=== PATIENT | female | born 1970 | race Caucasian/White ===

== ENCOUNTER 2024-04-27 15:18 | Outpatient (CLI) | payer OTHER, SELFPAY ==
--- NOTE | ~2024-04-27 | MM_ITS ---
EXAMINATION: MM screening hipolito BI w christie HISTORY: Screening TECHNIQUE: Craniocaudal and mediolateral oblique 3-D tomosynthesis images were obtained and synthetic 2-D images were generated. CAD analysis was submitted and interpreted. COMPARISON: No prior mammogram is available for comparison at this institution. BREAST PARENCHYMAL COMPOSITION: Not dense: There are scattered areas of fibroglandular density. FINDINGS: There is no evidence of suspicious mass, calcification, or architectural distortion to sugg est malignancy in either breast. There has been no suspicious interval change. IMPRESSION: 1. No mammographic evidence of malignancy. 2. Recommend routine screening mammography in one year. BI-RADS Category 1: Negative Reviewed, dictated and finalized at location B.
--- OUTSIDE RECORDS SUMMARY | 2024-04-27 15:24 | XMS_ITS | Clinical Summary ---
Author Organization [facility] [place] [facility] Address [address] [place] [address] Care Team Providers Care Manager Camp Name Role Phone Salas Hassan MD Primary Care Provider [phone] Allergies Active Allergy Reactions Criticality Noted Date Comments Latex Rash Medium 04/11/2020 Medications celecoxib (CeleBREX) 100 mg capsule 01/15/[address] (PROTONIX) 40 mg EC tablet 01/15/2023 Active montelukast (SINGULAIR) 10 mg tablet Take 1 tablet (10 mg total) by mouth daily 10/30/2023 Active Active Problems No known active problems Encounters Date Type Department Care Team Description 03/20/2024 Telephone [facility] [place] [facility] [address] [place] [phone] Jessica Naqvi 03/20/[address] [phone] Jessica Naqvi from Last 3 Months Social History Tobacco Use Types Packs/Day Years Used Date Smoking Tobacco: Every Day Cigarettes Tobacco Cessation:Ready to Q uit: No; Counseling Given: Yes Comments Unknown Sex and Gender Information Value Date Recorded Sex Assigned at Not on file Legal Sex Female 3:21 AM HOSTED SERVICES ANALYST Gender Identity Not on file Sexual Orientation Not on file Obstetrics History Last Filed Vital Signs Vital Sign Reading Time Taken Comments Blood Pressure 132/90 12/24/2023 3:39 PM HOSTED SERVICES ANALYST Pulse 98 12/24/2023 3:39 PM HOSTED SERVICES ANALYST Temperature 36.7 C (98.1 F) 12/24/2023 3:39 PM HOSTED SERVICES ANALYST Respiratory Rate 17 12/24/2023 3:39 PM HOSTED SERVICES ANALYST Oxygen Saturation 99% 12/24/2023 3:39 PM HOSTED SERVICES ANALYST Inhaled Oxygen Concentration - - Weight 78.9 kg (174 lb) 12/24/2023 3:39 PM HOSTED SERVICES ANALYST Height 157.5 cm (5' 2 ) 12/24/2023 3:39 PM HOSTED SERVICES ANALYST Body Mass Index 31.83 12/24/2023 3:39 PM HOSTED SERVICES ANALYST Plan of Treatment Health Maintenance Due Date Last Done Comments Breast Cancer Screening-Mammogram 1968 Cervical Cancer Screening 1968 Colon Cancer Screening-Colonoscopy 1968 Depression Screening 1968 Hepatitis C Screening 1968 Hepatitis B Screening 1986 Regular Well Visit/Exam 18-64 1986 Pneumococcal vaccine <65 (1 of 2 - PCV) 09/16/1987 Zoster Vaccine (1 of 2) 2018 DTaP/Tdap/Td Vaccine (2 - Td or Tdap) 07/17/202111/2011 Influenza Vaccine (#1) 2023 Insurance [facility] Care Teams Manager Camp Relationship Specialty Start Date End Date Salas Hassan MD [facility] [place] [address] PCP - General Family Medicine 01/14/23
--- OUTSIDE RECORDS SUMMARY | 2024-04-27 15:24 | XMS_ITS | Clinical Summary ---
Author Organization [facility] [place] Address [address] [place] [address] Care Team Providers Care Irrigation Supervisor Name Role Phone Chris Santoyo MD Primary Care Provider [phone] Source Comments [facility],non-owned Affiliates and Associated Physician Practices is amultiple site organization consisting of ambulatory clinics and hospital sitesin [place], [place], [place] and [place]. This disclosure is being madepursuant to the Care Everywhere program and may not contain all information available regarding this patient. Last updated 17.[facility] [place] Allergies Active Allergy Reactions Criticality Noted Date Comments Latex Rash Medium 04/11/2020 Medications * Be aware that medications may not be up to date on this document. Alwaysverify current medications with the patient. Medication Sig Dispensed Refills Start Date End Date Status RaNITidine HCl (ZANTAC PO) Active Linaclotide (LINZESS PO) Active fluticasone propionate (FLONASE) 50 MCG/ACT nasal sprayIndications:Al lergic Rhinitis [place] 2 sprays into each nostril once daily Reasons: Allergic Rhinitis 1 bottles 05/20/2018 Active Additional Information Patient not taking.Reported on 01/18/2020 lansoprazole (PREVACID) 15 MG capsule Take 15 mg by mouth daily before breakfast Active Fexofenadine HCl (MARCIN PO) Active Active Problems Problem Noted Date Diagnosed Date Flank pain 02/07/2009 Flu 11/26/2008 Palpitations 09/17/2008 Immunizations Name Administration Dates Next Due TDAP (7yrs+) 07/18/2011 Social History Tobacco Use Types Packs/Day Years Used Date Smoking Tobacco: Every Day Cigarettes 1.5 20 Smokeless Tobacco: Never Alcohol Use Standard Drinks/Week Comments No 0 (1 standard drink = 0.6 oz pur e alcohol) rare Sex and Gender Information Value Date Recorded Sex Assigned at Not on file Gender Identity Not on file Sexual Orientation Not on file Last Filed Vital Signs Vital Sign Reading Time Taken Comments Blood Pressure 112/70 10/02/2020 5:39 PM CDT Pulse 75 10/02/2020 5:39 PM CDT Temperature 36.8 C (98.3 F) 10/02/2020 5:39 PM CDT Respiratory Rate 17 10/02/2020 5:39 PM CDT Oxygen Saturation 96% 10/02/2020 5:39 PM CDT Inhaled Oxygen Concentration - - Weight 70.3 kg (155 lb) 10/02/2020 5:39 PM CDT Height 157.5 cm (5' 2 ) 10/02/2020 5:39 PM CDT Body Mass Index 28.35 10/02/2020 5:39 PM CDT Plan of Treatment Health Maintenance Due Date Last Done Comments COLOGUARD (AGES 45-75) - COLON CA SCREENING 1968 COLON MONITORING 1968 COLONOSCOPY - COLON CA SCREENING 1968 CT COLONOGRAPHY - COLON CA SCREENING 1968 Colorectal Cancer Screening 1968 FIT - COLON CA SCREENING 1968 FLEX SIG - COLON CA SCREENING 1968 LIPID TESTING 1968 MAMMOGRAM 1968 PAP SMEAR 1968 HIV SCREENING 09/16/1983 HEPATITIS C SCREENING 09/11/1986 HEPATITIS B VACCINE (1 of 3 - 19+ 3-dose series) 09/16/1987 PNEUMOCOCCAL VACCINE 50+ (1 of 2 - PCV) 09/16/1987 PNEUMOCOCCAL VACCINE (1 of 2 - PCV) 09/16/1987 ZOSTER VACCINE (1 of 2) 2018 SCREENING FOR DIABETES 01/18/2020 0, 11/27/2008, 11/27/2008, Additional history exists DTAP/TDAP/TD VACCINES (2 - Td or Tdap) 07/17/2021 07/18/2011 COVID-19 VACCINE (2 - season) 2023 04/17/2020 INFLUENZA VACCINE (#1) 2023 DEPRESSION SCREENING 02/08/2024 HIB VACCINE Aged Out No longer eligi ble based on patient's age to complete this topic HPV VACCINE Aged Out No longer eligi ble based on patient's age to complete this topic MENINGOCOCCAL (Group B) VACCINE SHARED DECISION-MAKING Aged Out No longer eligible based on patient's age to complete this topic MENINGOCOCCAL GROUPS A/C/Y/W VACCINE Aged Out No longer eligible based on patient's age to complete this topic Procedures Procedure Name Priority Date/Time Associated Diagnosis Comments COMPREHENSIVE METABOLIC PANEL STAT 02/07/2009 6:32 PM HOUSE MOVING SUPERVISOR from Last 3 Months or Most Recently Relevant to Health Maintenance Results * (ABNORMAL) COMPREHENSIVE METABOLIC PANEL (02/07/2009 6:32 PM HOUSE MOVING SUPERVISOR) BUN 10 7.0 - 17.0 mg/dl [facility] Sodium 138 137 - 145 mmol/L [facility] Potassium 4.4 3.6 - 5.0 mmol/L [facility] Chloride 102 98.0 - 107.0 mmol/L [facility] Glucose 91 75 - 110 mg/dl [facility] Creatinine 0.7 0.7 - 1.2 mg/dl [facility] AST 25 14.0 - 36.0 U/L [facility] Alkaline Phosphatase 53 38.0 - 126.0 U/L [facility] Calcium 9.1 8.4 - 10.2 mg/dl [facility] Bilirubin Total <0.1(L) 0.2 - 1.3 mg/dl [facility] Albumin 4.5 3.5 - 5.0 gm/dl [facility] Protein Total 7.4 6.3 - 8.2 gm/dl [facility] CO2 30 22.0 - 30.0 mEq/L [facility] ALT 14 9.0 - 52.0 U/L [facility] eGFR by MDRD 98.5 ml/min/1.7 3m2 [facility] BLOOD SPECIMEN / Unknown 02/07/2009 6:32 PM HOUSE MOVING SUPERVISOR 02/07/2009 6:32 PM HOUSE MOVING SUPERVISOR Noel Marie MD LAB - CHEMISTRY [facility] Organization Address City/State/ZIP Co de Phone Number [facility] [address] [place] [address] from Last 3 Months or Most Recently Relevant to Health Maintenance Advance Directives * Full Code (Latest Code Status on File) Date Activated Date Inactivated Comments 11/27/2008 3:08 AM 11/28/2008 4:46 AM Care Teams Irrigation Supervisor Relationship Specialty Start Date End Date Chris Santoyo MD [id number] [facility] [address] [facility] [address] [place] [address] PCP - General Family Medicine 03/29/17
--- OUTSIDE RECORDS SUMMARY | 2024-04-27 15:24 | XMS_ITS | Referral Summary ---
Author Organization [facility] [place] [address] [facility] Address [address] [place] [address] Care Team Providers Care Produce Clerk Name Role Phone Salas Hassan MD Primary Care Provider [phone] Encounters Date Type Department Care Team Description 03/20/2024 Telephone [facility] [address] [place] [phone] Jessica Naqvi 03/20/2024 Telephone [facility] [address] [place] [phone] Jessica Naqvi from Last 3 Months Allergies Active Allergy Reactions Criticality Noted Date Comments Latex Rash Medium 04/11/2020 Medications celecoxib (CeleBREX) 100 mg capsule 01/15/[address] (PROTONIX) 40 mg EC tablet 01/15/2023 Active montelukast (SINGULAIR) 10 mg tablet Take 1 tablet (10 mg total) by mouth daily 10/30/2023 Active Active Problems No known active problems Social History Tobacco Use Types Packs/Day Years Used Date Smoking Tobacco: Every Day Cigarettes Tobacco Cessation:Ready to Q uit: No; Counseling Given: Yes Comments Unknown Sex and Gender Information Value Date Recorded Sex Assigned at Not on file Legal Sex Female 3:21 AM FIRE MARSHAL REFINERY Gender Identity Not on file Sexual Orientation Not on file Last Filed Vital Signs Vital Sign Reading Time Taken Comments Blood Pressure 132/90 12/24/2023 3:39 PM FIRE MARSHAL REFINERY Pulse 98 12/24/2023 3:39 PM FIRE MARSHAL REFINERY Temperature 36.7 C (98.1 F) 12/24/2023 3:39 PM FIRE MARSHAL REFINERY Respiratory Rate 17 12/24/2023 3:39 PM FIRE MARSHAL REFINERY Oxygen Saturation 99% 12/24/2023 3:39 PM FIRE MARSHAL REFINERY Inhaled Oxygen Concentration - - Weight 78.9 kg (174 lb) 12/24/2023 3:39 PM FIRE MARSHAL REFINERY Height 157.5 cm (5' 2 ) 12/24/2023 3:39 PM FIRE MARSHAL REFINERY Body Mass Index 31.83 12/24/2023 3:39 PM FIRE MARSHAL REFINERY Plan of Treatment Not on file Insurance [facility] H[facility]/PPO Address: [address] [address] Care Teams Produce Clerk Relationship Specialty Start Date End Date Salas Hassan MD [address] [place] [address] PCP - General Family Medicine 01/14/23
--- OUTSIDE RECORDS SUMMARY | 2024-04-27 15:24 | XMS_ITS | Data Portability ---
Author Organization [facility] KAYLIESara Address [address] [place] [address] Care Team Providers Care Integrated Campaign Manager Name Role Phone HUMZA KOEHLER Primary Care Provider [phone] Assessment No assessment recorded. Plan of Treatment Reminders Order Date Submit Date Provider Last Modified By Organization Details Last Modified Time Details Appointments None recorded. Lab None recorded. Referral None recorded. Procedures None recorded. Surgeries None recorded. Imaging None recorded. Medication Orders omeprazole 40 mg capsule,de layed release 2015 016 [id number], [address], [place], [id number], 6 11:05:43 Flonase Allergy Relief 50 mcg/actuat ion nasal spray,susp ension 2015 016 [facility] [employer] [facility] #56762, [address], [place], [id number], 6 11:05:43 fluconazol e 150 mg tablet 2015 016 [facility] [facility] #57020, [address], [place], [place], [id number], 6 11:05:43 lactulose 10 gram/15 mL (15 mL) oral solution 2015 016 [facility], [address], [place], [id number], 6 11:05:43 amoxicilli n 500 mg capsule 2015 016 [facility] [employer] [facility] #30106, [address], [place], [place], [id number], 6 11:05:43 Robaxin 500 mg tablet 2015 016 [facility] [employer] [facility] #19351, [address], [place], [place], [id number], 6 16:18:28 Zithromax Z-Steven 250 mg tablet 2015 016 [facility] [employer] [facility] #08836, [address], [place], [place], [id number], 6 16:18:30 Flonase Allergy Relief 50 mcg/actuat ion nasal spray,susp ension 2015 016 [facility] [employer] [facility] #83695, [address], [place], [place], [id number], 6 16:18:31 Robaxin 500 mg tablet 2014 015 [facility] [employer] [facility] #85763, [address], [place], [place], [id number], 5 14:46:54 omeprazole 20 mg capsule,de layed release 2014 015 [facility] [employer] [facility] #15196, [address], [place], [place], [id number], 5 14:46:54 clindamyci n HCl 300 mg capsule 2014 015 [facility] [employer] [facility] [place]04820, [address], [id number], 5 16:51:30 Medrol (Steven) 4 mg tablets in a dose pack 2014 015 [facility] #25344, [address], [place], [place], [id number], 5 16:50:39 Patient TargetsNo targets recorded. Patient Instructions Encounter Date Encounter Id Patient Instructions Last Modified By Organization Details Last Modified Time 09/27/2014 [id number] deciding about using medicines to quit smoking strice Not available 09/27/2014 17:36:15 Quitting Tobacco : Care Instructions strice Not available 09/27/2014 17:36:15 dermatitis: care instructions strice Not available 09/27/2014 17:36:15 gas and bloating : care instructions strice Not available 09/27/2014 17:36:15 chronic obstructive pulmonary disease (COPD): care instructions strice Not available 09/27/2014 17:36:15 learning about copd and how to prevent lung infections strice Not available 09/27/2014 17:36:15 01/15/2015 [id number] deciding about using medicines to quit smoking strice Not available 01/15/2015 17:05:57 Quitting Tobacco : Care Instructions strice Not available 01/15/2015 17:05:57 Will return to work tomorrow on 01/16/2015 with restriction of not liftting more than 25 pounds for one month, will have a F/U visit in about one month if she dose not get better. She understood and agreed. Applying heating pad as needed. [facility] Not available 01/15/2015 16:54:42 02/14/2015 [id number] deciding about using medicines to quit smoking strice Not available 02/14/2015 16:18:55 Quitting Tobacco : Care Instructions strice Not available 02/14/2015 16:18:55 chronic obstructive pulmonary disease (COPD): care instructions strice Not available 02/14/2015 16:18:55 learning about copd and how to prevent lung infections strice Not available 02/14/2015 16:18:55 bronchitis: care instructions strice Not available 02/14/2015 16:18:55 10/22/2015 [id number] Quitting Tobacco : Care Instructions strice Not available 10/23/2015 10:08:11 deciding about using medicines to quit smoking strice Not available 10/23/2015 10:08:11 chronic obstructive pulmonary disease (COPD): care instructions strice Not available 10/23/2015 10:08:11 learning about copd and how to prevent lung infections strice Not available 10/23/2015 10:08:11 gas and bloating : care instructions strice Not available 10/23/2015 10:08:11 bronchitis: care instructions strice Not available 10/23/2015 10:08:11 Reason for Referral None Reported. Results Created Date Observation Date Name Description Value Unit Range Abnormal Flag Note LastModifiedBy Organization Detail LastModifiedTime 12/19/19 15 12/18/2014 imagi ng/di agnos tic resul t No observ ation record ed. [facility] (Imaging) [address] [place], [address], 01/15/2015 16:40:14 12/19/19 15 12/18/2014 imagi ng/di agnos tic resul t No observ ation record ed. [facility] Not Available 2014 16:40:14 03/31/19 16 03/27/2015 MAMMO , scree marilin, digit al, bilat eral No observ ation record ed. [facility] (Imaging) [address] [place], [address], 10/22/2015 16:44:40 Result Notes None recorded. Problems Name Problem SNOMED Code Status Onset Date Resolution Date Notes Provider Name and Address Organization Details Recorded Time Foot pain 67185689 Yuly Koehler MD Attn: Eun quinteros,[address] [place], [address], [place] [facility] 5 16:50:38 Chronic obstructive pulmonary disease 06333761 Yuly Koehlre MD Attn: Eun quinteros,[address] [place], [address], [place] [facility] 6 16:52:51 Tobacco dependence syndrome 85281076 Yuly Koehler MD Attn: Eun quinteros,[address] [place] [address], [address], [place] [facility] 6 16:52:51 Chronic low back pain 850210118 Active Humza Koehler MD Attn: Eun aldair,[address] [facility], [place], [address], [place] [facility] 5 16:55:00 Neck pain 51421194 Active Humza Koehler MD Attn: Eun aldair,[address] [facility], [place], [address], [place] [facility] 5 17:26:35 Flatulence/wi nd Active Humza Koehler MD Attn: Eun aldair,[address] [place], [address], [place] [facility] 6 16:52:51 Contact dermatitis 12933477 Active Humza Koehler MD Attn: Eun aldair,[address] [place], [address], [place] [facility] 5 16:50:38 Furuncle of ear 46870443 Active Humza Koehler MD Attn: Eun aldair,[address] [place], [address], [place] [facility] 5 16:50:38 Acid reflux 243959201 Active Humza Koehler MD Attn: Eun quinteros,[address] [place], [address], [place] [facility] 6 16:52:51 Acute low back pain 574018076 Active Humza Koehler MD Attn: Eun quinteros,[address] [place], [address], [place] [facility] 6 16:18:18 Acute bronchitis 53277817 Active Humza Koehler MD Attn: Eun quinteros,[address] [place], [address], [place] [facility] 6 16:52:51 Seasonal allergic rhinitis 990303899 Active Humza Koehler MD Attn: Eun quinteros,[address], [place], [address], [facility] 6 16:52:51 Candidiasis 36173882 Active Humza Koehler MD Attn: Eun quinteros,[address], [place], [address], [facility] 6 16:52:51 Mammography abnormal 968175970 Active Federico berry, [facility] 5 15:04:51 Problem Notes None recorded. Procedures Surgical History None recorded. Imaging Results Imaging Date Name Status LastModified by Organiz ation Details LastModified Time 12/18/2014 imaging/diagno stic result completed [facility] (Imaging) [address] [place], [address], 01/15/2015 16:40:14 12/18/2014 imaging/diagno stic result completed [facility] Information not available 01/15/2015 16:40:14 03/27/2015 MAMMO, screening, digital, bilateral completed [facility] (Imaging) [address] [place], [address], 10/22/2015 16:44:40 Procedure Notes None recorded. Medical Equipment None Reported. Allergies Allergen ID Allergen Name Allergen Category Reaction Reaction Severity Criticality Documentation Date Start Date Code Code System Note Provider Name and Address Organization Details Recorded Time 06964 Cipro medicatio n Not available Not available Not available 09/27/201456718 3 RxNorm Not Available Not Available Not Available 52292 Flagyl medicatio n Not available Not available Not available 09/27/201493619 6 RxNorm Not Available Not Available Not Available Medications Name Sig Start Date Stop Date Status Note LastModified by Organization Details LastModified Time Prescription - New active Not Available Not Available Not Available cyclobenzapr ine 10 mg tablet Take 1 tablet every day by oral route at bedtime for 30 days. active Not Available Not Available No t Available amoxicillin 500 mg capsule Take 1 capsule every 12 hours by oral route after meals for 5 days. active Not Available Not Available Not Available methocarbamo l 500 mg tablet Take 2 tablet(s) 3 times a day by oral route as needed for 30 days. active Not Available Not Available No t Available clindamycin HCl 300 mg capsule Take 1 capsule every 8 hours by oral route for 5 days. active Not Available Not Available Not Available azithromycin 250 mg tablet TAKE 2 TABLETS (500 MG) BY ORAL ROUTE ONCE DAILY FOR 1 DAY THEN 1 TABLET (250 MG) BY ORAL ROUTE ONCE DAILY FOR 4 DAYS active Not Available Not Available No t Available fluconazole 150 mg tablet Take 1 tablet every day by oral route for 2 days. active Not Available Not Available No t Available hydrocodone 5 mg-acetamino phen 325 mg tablet active Not Available Not Available Not Available Q-Dryl 25 mg capsule active Not Available Not Available Not Available famotidine 40 mg tablet active Not Available Not Available Not Available prednisone 20 mg tablet active Not Available Not Available Not Available metronidazol e 500 mg tablet Take 1 tablet every 8 hours by oral route for 5 days. active Not Available Not Available Not Available acetaminophe n 300 mg-codeine 30 mg tablet active Not Available Not Available Not Available ciprofloxaci n 500 mg tablet Take 1 tablet every 12 hours by oral route with meals for 5 days. active Not Available Not Available Not Available omeprazole 40 mg capsule,alli yed release TAKE 1 CAPSULE BY MOUTH EVERY DAY BEFORE MEALS active Not Available Not Available No t Available tramadol 50 mg tablet active Not Available Not Available No t Available meloxicam 7.5 mg tablet active Not Available Not Available Not Available famotidine 20 mg tablet TAKE 1 TABLET BY MOUTH TWICE DAILY active Not Available Not Available No t Available omeprazole 20 mg capsule,alli yed release Take 1 capsule every day by oral route before meals for 30 days. active Not Available Not Available No t Available levofloxacin 500 mg tablet active Not Available Not Available Not Available methylpredni solone 4 mg tablets in a dose pack Take 1 tablet every day by oral route for 6 days. active Not Available Not Available No t Available fluticasone propionate 50 mcg/actuatio n nasal spray,suspen emmy Inhale 1 spray twice a day by intranasal route as needed for 30 days. active Not Available Not Available No t Available naproxen 500 mg tablet Take 1 tablet twice a day by oral route with meals for 30 days. active Not Available Not Available No t Available amoxicillin 875 mg-potassium clavulanate 125 mg tablet active Not Available Not Available Not Available Sejale 0.35 mg tablet active Not Available Not Available Not Available bupropion HCl XL 150 mg 24 hr tablet, extended release active Not Available Not Available Not Available lactulose 10 gram/15 mL oral solution active Not Available Not Available Not Available lactulose 10 gram/15 mL (15 mL) oral solution Take 15 mL every day by oral route in the morning for 30 days. 2015 active Not Available Not Available Not Avai lable Vitals Date Recorded Body weight Body height Body mass index (BMI) Heart rate Body temperature Oxygen saturation Oxygen saturation in Arterial blood by Pulse oximetry Systolic blood pressure Diastolic blood pressure Provider Name and Address Organization Details Last Updated DateTime 5 67494.6 3261 g 156.21 cm 28.4 kg/m2 74 /min 98.3 [degF] 100 % 100 % 118 mm[Hg] 70 mm[Hg] Pierre ruby MA [facility] 5 16:04:37 Date Recorded Body weight Oxygen saturation Oxygen saturation in Arterial blood by Pulse oximetry Body height Body temperature Heart rate Body mass index (BMI) Systolic blood pressure Diastolic blood pressure Provider Name and Address Organization Details Last Updated DateTime 5 90061.6 81622 g 100 % 100 % 156.21 cm 97.8 [degF] 72 /min 29.9 kg/m2 106 mm[Hg] 68 mm[Hg] Jared Perez MA [facility] 5 16:01:52 Date Recorded Body height Oxygen saturation Oxygen saturation in Arterial blood by Pulse oximetry Body weight Heart rate Body mass index (BMI) Body temperature Systolic blood pressure Diastolic blood pressure Provider Name and Address Organization Details Last Updated DateTime 6 156.21 cm 100 % 100 % 92140.9 21260 g 83 /min 30.4 kg/m2 98 [degF] 104 mm[Hg] 62 mm[Hg] Jared Perez MA [facility] 6 15:52:56 Date Recorded Body mass index (BMI) Body height Oxygen saturation Oxygen saturation in Arterial blood by Pulse oximetry Body temperature Heart rate Body weight Systolic blood pressure Diastolic blood pressure Provider Name and Address Organization Details Last Updated DateTime 6 28.2 kg/m2 156.21 cm 99 % 99 % 98.1 [degF] 75 /min 87768.3 85041 g 102 mm[Hg] 60 mm[Hg] Jared Perez MA [facility] 6 16:34:29 Social History Question Answer Notes LastModified by Organizat ion Details LastModified Time Tobacco Smoking Status Current Every Day Smoker Jared Perez MA null, [facility] 06/19/2014 16:38:31 Are You Currently Employed? 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 1 PPD Information not available 06/19/2014 How Many Years Have You Smoked Tobacco? 20 Information not available 06/19/2014 Sex: Unknown Functional Status None recorded. Mental Status None recorded. Family History Relationship Description Onset Age of this Age Resolved Age Notes LastModified by Organization Details LastModified Time Father [facility] [place] Not available 09/08 16:04:37 Father Heart disease unkhouser Not available 09/08 16:04:37 Father Hypertensive disorder unkhouser Not available 09/08 16:04:37 Father [facility] Not [facility] 09/08 16:04:37 Medical History Condition Response Acid Reflux (GERD) Y Allergies Y Gynecological HistoryNo gynecological history recorded. Obstetrics History GPAL:G 0 P 0 0 0 0 Past Encounters Encounter ID Performer Location Encounter Start Date Encounter Closed Date Diagnosis/Indication Diagnosis SNOMED-CT Code Diagnosis ICD10 Code Diagnosis Note [id number] Mandy Contreras (Adult Med) [address] [place] [phone] 06/19/2014 16:18:59 06/21/2014 10:48:26 Foot pain 81694734 Chronic ob structive pulmonary disease 64551491 Tobacco de pendence syndrome 20366537 Chronic low back pain 235593063 Neck pain 94396082 Flatulence/wind 906481029 [id number] Isaiahmaria Contreras (Adult Med) [address] [place] [phone] 09/27/2014 15:27:22 09/27/2014 17:39:55 Chronic obstructive pulmonary disease 45928014 Tobacco de pendence syndrome 74881237 Flatulence/wind 717832535 Foot pain 04670304 Contact dermatitis 39138509 Furuncle of ear 54661652 [id number] Humza Koehler MD [facility] (Adult Med) [address] [place] [phone] 01/15/2015 15:03:25 01/15/2015 16:52:31 Chronic low back pain 522611182 M54.5 Acid reflux 074494424 K2 1.9 Tobacco de pendence syndrome 90487894 F17.290 Acute low back pain 2788 71144 M54.5 [id number] Humza Koehler MD [facility] (Adult Med) [address] [place] [phone] 02/14/2015 15:37:32 02/14/2015 17:16:34 Acute low back pain 237602859 M54.5 Acute bronchitis 1650504 2 J20.9 Chronic ob structive pulmonary disease 96461853 J44.9 Tobacco de pendence syndrome 38053350 F17.290 [id number] Humza Koehler MD [facility] (Adult Med) [address] [place] [phone] 10/22/2015 15:07:27 10/24/2015 11:05:58 [id number] Humza Koehler MD [facility] (Adult Med) [address] [place] [phone] 10/22/2015 16:17:39 10/22/2015 17:57:59 Acute bronchitis 90910119 J20.9 Acid reflux 848056849 K2 1.9 Chronic ob structive pulmonary disease 73204390 J44.9 Flatulence/wind 21189838 5 R14.3 Tobacco de pendence syndrome 11075686 F17.290 Seasonal a llergic rhinitis 211420367 J30.2 Candidiasis 50457212 B37 .9 Health Concerns Section Related Observation LastModified by Organization Detai ls LastModified Time None Recorded Concern Status LastModified by Organization Details LastModified Time None Recorded Advance Directives Directive None Recorded Payers Encounter Date Sequence Insurance Name Policy Number Policy Tsang Covered Member ID Tsang Member ID Guarantor Name 09/27/[address] [facility] PRIOR TO 08/07/2020 (MEDICAID REPLACEMENT - HMO) Orin Knox [id number] Orin Knox 01/15/[address] [facility] PRIOR TO 08/07/2020 (MEDICAID REPLACEMENT - HMO) Orin Knox [id number] Orin Knox 02/14/[address] [facility] PRIOR TO 08/07/2020 (MEDICAID REPLACEMENT - HMO) Orin Knox [id number] Orin Knox 10/22/[address] [facility] PRIOR TO 08/07/2020 (MEDICAID REPLACEMENT - HMO) Orin Knox [id number] Orin Knox 10/22/[address] [facility] PRIOR TO 08/07/2020 (MEDICAID REPLACEMENT - HMO) Orin Knox [id number] Orin Knox Notes Date Note Type Note Provider Name and Address Organization Details Recorded Time 09/27/2014 text/html allergy to poiso n valdemar,; pimple over the left ear., less pain of left ankle, is resolving., Humza Koehler MD Attn: Accounting,[address] [place], [address], 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 She went ER, but the right lower back still hurts. Humza Koehler MD Attn: Accounting,[address] [place], [address], [facility] - [facility] 01/15/2015 16:55:01 02/14/2015 text/html F/U for lower back pain, Chest cold, a smoker. Humza Koehler MD Attn: Accounting,[address] [place], [address], [facility] - [facility] 02/14/2015 16:18:21 10/22/2015 text/html 1. Possible allergy , sinus, ear, headache recently. 2. Still smokes cigarettes. 3. yeast infection from the hit .4. Acid reflux pill to be up-grated. 5. Refill of Flonase. 6. Chest congestion. NKDA. 7. Liquid medication for the gasses' gut. Humza Koehler MD Attn: Accounting,[address] [place], [address], [place] [facility] 10/22/2015 16:52:55 OBGyn Episode No OBEpisode recorded.
== END 2024-04-27 15:19 | disposition home or self-care (01) ==
LOC: ANHIMG 15:20
PROVIDERS: PCP Nurse Practitioner; Visit Provider Nurse Practitioner
DX: Z12.31 Encounter for screening mammogram for malignant neoplasm of breast (principal)
CPT/HCPCS: 77063; 77067